=== PATIENT | male | born 1975 | race Caucasian/White ===

== ENCOUNTER 2017-11-19 18:35 | Emergency (ER) | payer MEDICAID ==
[~2017-11-19] VITALS: Ht 188 cm; Wt 148.0 kg
[~2017-11-19 18:35] MED LIST: BACT800T5 PO; CEPH-460 PO; SUBO8MIS SL
[2017-11-19 18:41] VITALS: BP 140/89; PULSE 98; RESP 18; TEMP 99.3; O2SAT 97
--- NOTE | 2017-11-19 19:28 | PD ---
HPI Chief Complaint: ENT Complaint Time Seen by Provider: 18:53 Travel History International Travel<30 days: No Contact w/Intl Traveler<30days: No Traveled to known affect area: No History of Present Illness HPI 42-year-old male presents to the emergency department for evaluation of possible cerumen impaction, inability to hear out of the right ear. He states he has tried to irrigate it himself, but has not had any luck. He denies any pain. He has no medical problems. He currently takes Suboxone. He has no other symptoms or complaints at this time. Mild severity. PFSH Past Medical History Diminished Hearing: No Tetanus Vaccination: Unknown Influenza Vaccination: No ?: Not Past Surgical History Tonsillectomy: Yes Social History Alcohol Use: No Tobacco Use: Yes (1/2 ppd) Substance Use: No (HX OF) Allergies-Medications (Allergen,Severity, Reaction): Coded Allergies: No Known Allergies (Unverified Adverse Reaction, Unknown, 11/19/17) Reported Meds & Prescriptions Reported Meds & Active Scripts Active Reported Suboxone Sublingual Film (Buprenorphine-Naloxone Sublingual Film) 8-2 Mg Film 1 Film SL BID Unique ID number required: Review of Systems Except as stated in HPI: all other systems reviewed are Neg Physical Exam Narrative GENERAL: Well-nourished, well-developed male patient, ambulatory. Afebrile. SKIN: Focused skin assessment warm/dry. HEAD: Normocephalic. Atraumatic. ENT: Mucosa pink and moist. No erythema or exudates. No uvular edema. No uvular , palatal, or tonsillar deviation. Airway patent. Nasal turbinates appear normal without nasal blood, purulent drainage or septal hematoma. Left tympanic membrane is clear without erythema or perforation. Right ear canal with cerumen impaction. EYES: No scleral icterus. No injection or drainage. NECK: Supple, trachea midline. No JVD or lymphadenopathy. CARDIOVASCULAR: Regular rate and rhythm without murmurs, gallops, or rubs. RESPIRATORY: Breath sounds equal bilaterally. No accessory muscle use. Lung sounds are clear to auscultation MUSCULOSKELETAL: No cyanosis, or edema. Data Data Last Documented VS Vital Signs Date Time Temp Pulse Resp B/P (MAP) Pulse Ox O2 Delivery O2 Flow Rate FiO2 11/19/17 18:41 99.3 98 18 140/89 (106) 97 Orders Orders Ear Irrigation (11/19/17 19:02) [facility] Medical Decision Making Medical Screen Exam Complete: Yes Emergency Medical Condition: Yes Medical Record Reviewed: Yes Differential Diagnosis Cerumen impaction versus otitis media versus eustachian tube dysfunction Narrative Course 42-year-old male presents to the emergency department for evaluation of possible cerumen impaction, unable to hear the right ear. Physical exam does reveal cerumen impaction. Ear is irrigated and patient states that he has resolution of symptoms. Patient stable for discharge. The patient was discharged in stable condition with instructions, including return instructions and follow up instructions. Diagnosis Primary Impression: Impacted cerumen, right ear Referrals: Primary Care Physician as needed Patient Instructions: Cerumen Impaction (ED), General Instructions Additional Instructions: Use [id number] earwax removal drops as needed. Follow-up with your primary care physician as needed. Return to the emergency department for any acute worsening of symptoms. Med/Other Pt SpecificInfo: No Change to Meds Disposition: 01 DISCHARGE HOME Condition: Stable Carin Quinteros November 19, 2017 19:28
== END 2017-11-19 19:37 | disposition home or self-care (01) ==
LOC: PHEFT 18:35
DX: H61.21 Impacted cerumen, right ear (principal); F17.200 Nicotine dependence, unspecified, uncomplicated
CPT/HCPCS: 99283